=== PATIENT | male | born 1985 ===

== ENCOUNTER 2019-01-06 13:41 | Emergency (ER) | payer OTHER ==
[2019-01-06] MEDS ORDERED: Tetracaine 0.5% Ophth 2 ML BOTTLE OD ONE (14:41)
[2019-01-06] MEDS ORDERED: Fluorescein 1 mg Ophthalmic Strip OD ONE (14:42)
[2019-01-06] MEDS ORDERED: Fluorescein 1 mg Ophthalmic Strip ONE (14:46)
[2019-01-06] MEDS ORDERED: Tetracaine 0.5% Ophth (OR ONLY) ONE (14:47)
--- NOTE | 2019-01-06 15:30 | C.PDOC ---
History Of Present Illness 33 y/o male,w/ no significant PMhx, presents to the ER complaining of right eye pain and redness which has been present for the past 2 days. Patient states that he was cutting piece of metal at work and he was not wearing safety glasses. Patient reports that he does not wear corrective lenses.Denies having fever,chills, headache, vision changes, and eye drainage. Time Seen by Provider: 01/06/19 14:38 Chief Complaint (Nursing): Eye Problem History Per: Patient History/Exam Limitations: no limitations Onset/Duration Of Symptoms: Days Current Symptoms Are (Timing): Still Present Severity: Moderate Past Medical History Reviewed: Historical Data, Nursing Documentation, Vital Signs Vital Signs: Last Vital Signs Temp 98.6 F 01/06/19 13:52 Pulse 59 L 01/06/19 13:52 Resp 17 01/06/19 13:52 BP 145/88 01/06/19 13:52 Pulse Ox 99 01/06/19 13:52 - Medical History PMH: No Chronic Diseases Surgical History: No Surg Hx Family History: States: No Known Family Hx - Social History Hx Alcohol Use: No Hx Substance Use: No - Immunization History Hx Tetanus Toxoid Vaccination: Yes Hx Influenza Vaccination: No Hx Pneumococcal Vaccination: No Review Of Systems Except As Marked, All Systems Reviewed And Found Negative. Constitutional: Negative for: Fever, Chills Eyes: Positive for: Pain (right eye), Redness (right eye) Physical Exam - Physical Exam Appears: Non-toxic, No Acute Distress Skin: Normal Color, Warm, Dry Head: Atraumatic, Normacephalic Eye(s): bilateral: PERRL, EOMI, right: Other (right sclera injected, foreign body at approximately 4 o clock position visualized with fluorescein and tetracine, no swelling of eyelids, no debris on lashes, no erythema, surrounding skin intact) Nose: Normal Oral Mucosa: Moist Neck: Supple Chest: Symmetrical Neurological/Psych: Oriented x3, Normal Speech, Normal Cranial Nerves ED Course And Treatment O2 Sat by Pulse Oximetry: 99 (RA) Pulse Ox Interpretation: Normal Medical Decision Making Medical Decision Making: Plan: 15:25 Foreign Body has been visualized. Case discussed with . advised for patient to be discharged and follow up with him in his office. Patient was discharged and instructed to follow up in Dr. Liriano's office. Nurse Ham translated for patient in Greek. Disposition Counseled Patient/Family Regarding: Studies Performed, Diagnosis - Disposition Referrals: Fabrizio Liriano MD [Staff Provider] - Disposition: HOME/ ROUTINE Disposition Time: 15:29 Condition: STABLE Additional Instructions: Vaya a la oficina de Dr. Liriano depues de florentino de la farzad de emergencia. Instructions: Foreign Body in Eye (DC) Forms: Gen Discharge Inst Greek, [employer] (Greek) Print Language: MAORI - Clinical Impression Clinical Impression: Foreign body of right cornea - Scribe Statement The provider has reviewed the documentation as recorded by the Scribe Salty Worley Provider Attestation: All medical record entries made by the Scribe were at my direction and personally dictated by me. I have reviewed the chart and agree that the record accurately reflects my personal performance of the history, physical exam, medical decision making, and the department course for this patient. I have also personally directed, reviewed, and agree with the discharge instructions and disposition.
[2019-01-06 16:02] VITALS: BP 144/69; PULSE 62; RESP 20; TEMP 97.8
[2019-01-06 17:06] VITALS: O2SAT 99
== END 2019-01-06 16:02 | disposition home or self-care (01) ==
LOC: C.ER 13:41
DX: T15.01XA Foreign body in cornea, right eye, initial encounter (principal); W22.8XXA Striking against or struck by other objects, initial encounter; Y92.89 Other specified places as the place of occurrence of the external cause; Y99.0 Civilian activity done for income or pay